=== PATIENT | female | born 1990 | race Caucasian/White ===

== ENCOUNTER 2022-05-19 14:58 | Observation (INO) | payer MEDICAID | END 2022-05-19 16:50 | disposition home or self-care (01) | LOC: SPU 14:58 | PROVIDERS: ADMIT Obstetrics & Gynecology; ATTEND Obstetrics & Gynecology | DX: O26.53 Maternal hypotension syndrome, third trimester (principal); Z3A.39 39 weeks gestation of pregnancy | CPT/HCPCS: G0378 ==